=== PATIENT | female | born 1955 | race Two or more races ===

== ENCOUNTER 2024-08-22 12:53 | Emergency (ER) | payer OTHER ==
[~2024-08-22] VITALS: Ht 162.6 cm; Wt 59.9 kg
[~2024-08-22 12:53] MED LIST: FOSAMAX70 MG; INTESTINEX680 M1 PO; PEPCID AC20 MG PO; PRE PROTEIN1 EACH PO; PROMETRIUM200 MG; PROTONIX40 MG PO; VANCOMYCIN HCL125 MG PO
[2024-08-22 15:39] LABS: HEMOGLOBIN 14.4 g/dL (12.0-15.00); MEAN CELL VOLUME 92.8 fL (80.00-100.00); MEAN CORPUSCULAR HEMOGLOBIN 31.8 pg (27.00-32.0); MEAN CORPUSCULAR HGB CONC 34.3 g/dl (32.0-36.0); PLATELET COUNT 237 K/uL (150-450); RED BLOOD COUNT 4.52 M/uL (4.00-6.00); RED CELL DISTRIBUTION WIDTH 13.8 % (11.5-14.5)
[2024-08-22 15:55] LABS: ALBUMIN 3.4 gm/dL (3.4-5.0); BILIRUBIN TOTAL 0.4 mg/dL (0.3-1.2); BILIRUBIN,CONJUGATED 0.11 mg/dL (0.0-0.2); BILIRUBIN,UNCONJUGATED 0.29 mg/dL (0.0-0.6); CALCIUM 9.8 mg/dL (8.5-10.1); CREATININE SERUM 0.64 mg/dL (0.55-1.02); GFR 92.84; POTASSIUM 4.51 mEq/L (3.5-5.1); TOTAL PROTEIN 7.3 gm/dL (6.4-8.2)
[2024-08-22 16:49] LABS: URINE APPEARANCE Clear; URINE BILIRRUBIN Negative (NEGATIVE); URINE BLOOD Negative; URINE COLOR Yellow; URINE GLUCOSE Negative (NEGATIVE); URINE KETONE Negative (NEGATIVE); URINE LEUKOCYTE Negative; URINE NITRATE Negative; URINE PROTEIN Negative (NEGATIVE); URINE UROBILINOGEN 0.2 E.U./dl
[2024-08-22 16:52] LABS: URINE BACTERIA 256.9 uL (0.0-1933); URINE EPITHELIAL CELLS 19.6 uL (0.0-38.8); URINE RBC 6.7 uL (0.0-20.8); URINE WBC 4.7 uL (0.0-23.2)
[2024-08-22] MEDS ORDERED: PROBIOTIC1 EAC2 PO (18:24)
[2024-08-22] MEDS ORDERED: METRONIDAZOLE500 MG PO (18:24)
[2024-08-22] MEDS ORDERED: CIPRO500 MG PO (18:24)
[2024-08-22] MEDS ORDERED: PEPCID AC20 MG PO (18:24)
== END 2024-08-22 18:34 | disposition home or self-care (01) ==
LOC: ER 12:54
PROVIDERS: General Practice
DX: K52.89 Other specified noninfective gastroenteritis and colitis (principal); R10.32 Left lower quadrant pain; K57.30 Diverticulosis of large intestine without perforation or abscess without bleeding; J45.909 Unspecified asthma, uncomplicated; Z88.6 Allergy status to analgesic agent; Z88.0 Allergy status to penicillin; M19.90 Unspecified osteoarthritis, unspecified site
CPT/HCPCS: 36415; 74177; 99284; Q9965

== ENCOUNTER 2024-09-09 13:39 | Emergency (ER) | payer OTHER ==
[~2024-09-09] VITALS: Ht 162.6 cm; Wt 58.5 kg
[~2024-09-09 13:39] MED LIST changes: +CIPRO500 MG PO; +METRONIDAZOLE500 MG PO; +PROBIOTIC1 EAC2 PO
[2024-09-09] MEDS ORDERED: ALENDRONATE SOD70 MG PO (14:05)
[2024-09-09] MEDS ORDERED: PROMETRIUM200 MG PO (14:06)
[2024-09-09] MEDS ORDERED: RINGERS SOLUTION,LACTATED 1,000 ML IV STA (15:00)
[2024-09-09 15:43] LABS: HEMATOCRIT 41.7 % (36.0-45.00); HEMOGLOBIN 14.6 g/dL (12.0-15.00); MEAN CELL VOLUME 92.3 fL (80.00-100.00); MEAN CORPUSCULAR HEMOGLOBIN 32.4 pg (27.00-32.0); MEAN CORPUSCULAR HGB CONC 35.1 g/dl (32.0-36.0); PLATELET COUNT 236 K/uL (150-450); RED BLOOD COUNT 4.52 M/uL (4.00-6.00); RED CELL DISTRIBUTION WIDTH 13.4 % (11.5-14.5)
[2024-09-09 15:51] LABS: URINE APPEARANCE Clear; URINE BILIRRUBIN Negative (NEGATIVE); URINE BLOOD Negative; URINE COLOR Yellow; URINE GLUCOSE Negative (NEGATIVE); URINE KETONE Negative (NEGATIVE); URINE LEUKOCYTE Negative; URINE NITRATE Negative; URINE PROTEIN Negative (NEGATIVE); URINE UROBILINOGEN 0.2 E.U./dl
[2024-09-09 15:55] LABS: URINE BACTERIA 200.2 uL (0.0-1933); URINE CAST 0.15 uL (0.0-1.40); URINE EPITHELIAL CELLS 21.3 uL (0.0-38.8); URINE RBC 3.3 uL (0.0-20.8); URINE WBC 5.7 uL (0.0-23.2)
[2024-09-09 16:06] LABS: ALBUMIN 3.5 gm/dL (3.4-5.0); BILIRUBIN TOTAL 0.65 mg/dL (0.3-1.2); BILIRUBIN,CONJUGATED 0.19 mg/dL (0.0-0.2); BILIRUBIN,UNCONJUGATED 0.46 mg/dL (0.0-0.6); CALCIUM 9.7 mg/dL (8.5-10.1); CREATININE SERUM 0.68 mg/dL (0.55-1.02); GFR 86.3; POTASSIUM 4.2 mEq/L (3.5-5.1)
[2024-09-09] MEDS ORDERED: CHOLESTYRAMINE/ASPARTAME LIGHT 4 G/PKT PACKET PO ONE (17:00)
[2024-09-09 18:00] LABS: ob POSITIVE (NEGATIVE)
[2024-09-09] MEDS ORDERED: METRONIDAZOLE500 MG PO (19:54)
[2024-09-09] MEDS ORDERED: QUESTRAN POWDE378 GM PO (19:54)
== END 2024-09-09 20:13 | disposition home or self-care (01) ==
LOC: ER 13:41
PROVIDERS: General Practice
DX: K52.89 Other specified noninfective gastroenteritis and colitis (principal); R19.7 Diarrhea, unspecified; E86.0 Dehydration; Z20.822 Contact with and (suspected) exposure to COVID-19; Z88.6 Allergy status to analgesic agent; Z88.0 Allergy status to penicillin; E11.9 Type 2 diabetes mellitus without complications
CPT/HCPCS: 36415; 74177; 99284; Q9965

== ENCOUNTER 2024-09-27 12:02 | Inpatient (IN) | payer OTHER ==
[~2024-09-27] VITALS: Ht 162.6 cm; Wt 57.6 kg
[~2024-09-27 12:02] MED LIST changes: +ALENDRONATE SOD70 MG PO; +PROMETRIUM200 MG PO; +QUESTRAN POWDE378 GM PO
--- NOTE | 2024-09-27 12:45 | NUR ---
PTE ALERTA Y ORIENTADA X3, SE MANUELA S/V. PTE REFIERE QUE SAUCEDO TENIDO 15 DIARREA Y PRESENTA DOLOR ABDOMINAL. PTE REFIERE QUE BARR MEDICO [place] IND[place] QUE FUERA A ER. SE UBICA EN VA[place]NAVI AREA DE OBSERVACION.
[2024-09-27] MEDS ORDERED: 0.9 % SODIUM CHLORIDE 1,000 ML IV SCH ×2 (13:06→18:45)
--- NOTE | 2024-09-27 14:15 | NUR ---
SE REALIZA LABORATORIO NOBLE ORDEN MEDICA BAJO0 MEDIDAS ASEPTICAS. SE ORIENTA A PTE QUIEN REFIERE ENTENDER Y ACEPTAR.
[2024-09-27 14:35] LABS: HEMATOCRIT 42.7 % (36.0-45.00); HEMOGLOBIN 14.5 g/dL (12.0-15.00); MEAN CELL VOLUME 93.9 fL (80.00-100.00); MEAN CORPUSCULAR HEMOGLOBIN 31.9 pg (27.00-32.0); PLATELET COUNT 180 K/uL (150-450); RED BLOOD COUNT 4.55 M/uL (4.00-6.00); RED CELL DISTRIBUTION WIDTH 12.9 % (11.5-14.5)
[2024-09-27 14:56] LABS: CALCIUM 9.6 mg/dL (8.5-10.1); CREATININE SERUM 0.69 mg/dL (0.55-1.02); GFR 84.86; POTASSIUM 4.56 mEq/L (3.5-5.1)
[2024-09-27 15:28] LABS: URINE APPEARANCE Clear; URINE BILIRRUBIN Small (NEGATIVE); URINE BLOOD Negative; URINE COLOR Dark Yellow; URINE GLUCOSE Negative (NEGATIVE); URINE LEUKOCYTE Trace; URINE NITRATE Negative; URINE PROTEIN Trace (NEGATIVE); URINE UROBILINOGEN 0.2 E.U./dl
[2024-09-27 15:31] LABS: URINE BACTERIA 1305.2 uL (0.0-1933); URINE EPITHELIAL CELLS 39.4 uL (0.0-38.8); URINE RBC 25.6 uL (0.0-20.8); URINE WBC 16.8 uL (0.0-23.2)
[2024-09-27 15:44] LABS: URINE CAST 0.45 uL (0.0-1.40); URINE KETONE 40 (NEGATIVE)
[2024-09-27] MEDS ORDERED: CIPROFLOXACIN IN 5 % DEXTROSE 400 MG/200 ML PIGGYBAG IV ONE (16:45)
[2024-09-27] MEDS ORDERED: METRONIDAZOLE/SODIUM CHLORIDE 500 MG/100 ML PIGGYBACK IV ONE (16:45)
[2024-09-27] MEDS ORDERED: MEPERIDINE HCL/PF 25 MG/ML VIAL IV ONE (18:00)
--- NOTE | 2024-09-27 18:38 | NUR ---
SE ADMINISTRA MEDICAMENTO NOBLE ORDEN MEDICA.
[2024-09-27] MEDS ORDERED: ACETAMINOPHEN 500 MG GEL..CAP PO PRN (18:45)
[2024-09-27] MEDS ORDERED: ONDANSETRON HCL 4 MG in 0.9 % SODIUM CHLORIDE 50 ML IV PRN (18:45)
[2024-09-27] MEDS ORDERED: MORPHINE SULFATE 2 MG/ML CARTRIDGE IV PRN (19:00)
[2024-09-27] MEDS ORDERED: MORPHINE SULFATE 2 MG/ML CARTRIDGE IV ONE (19:00)
[2024-09-27 20:44] LABS: INR 1.15; PARTIAL THROMBOPLASTIN TIME 27.3 SECONDS (22.0-34.0); PROTHROMBIN TIME 12.4 SECONDS (9.0-11.5)
[2024-09-27 20:54] VITALS: BP 108/63; O2SAT 100
[2024-09-27] MEDS ORDERED: LACTOBACILLUS ACIDOPHILUS 1 CAP CAP PO SCH (21:56)
[2024-09-28] MEDS ORDERED: METRONIDAZOLE/SODIUM CHLORIDE 100 ML IV SCH (01:00)
[2024-09-28 01:57] VITALS: BP 116/68; O2SAT 96
[2024-09-28 08:47] LABS: ob POSITIVE (NEGATIVE)
[2024-09-28] MEDS ORDERED: levoFLOXacin IN DEXTROSE 5 % 150 ML IV SCH (09:00)
[2024-09-28] MEDS ORDERED: PANTOPRAZOLE SODIUM 40 MG/VIAL VIAL IV SCH (09:00)
[2024-09-28 09:45] VITALS: BP 113/71; O2SAT 96
[2024-09-28] MEDS ORDERED: FAMOTIDINE/PF 20 MG/2 ML VIAL IV SCH (12:35)
[2024-09-28] MEDS ORDERED: VANCOMYCIN HCL 125 MG/7.5 ML BLIST.PACK PO SCH (18:00)
[2024-09-28 18:55] VITALS: BP 124/73; O2SAT 97
[2024-09-28] MEDS ORDERED: LORATADINE 10 MG TABLET PO SCH (19:11)
[2024-09-29 02:46] VITALS: BP 124/73
[2024-09-29] MEDS ORDERED: DICYCLOMINE HCL 10 MG CAPSULE PO PRN (05:45)
[2024-09-29] MEDS ORDERED: NA PHOS,M-B/NA PHOS,DI-BA 1 BOTTLE ENEMA RECTAL SCH (06:00)
[2024-09-29 09:31] VITALS: BP 112/68; O2SAT 97
[2024-09-29 18:23] VITALS: BP 111/70; O2SAT 100
[2024-09-30 00:18] VITALS: BP 114/71
[2024-09-30 12:58] VITALS: BP 115/74
[2024-09-30 18:28] VITALS: BP 127/80; O2SAT 100
[2024-10-01 00:31] VITALS: BP 130/60; O2SAT 98
[2024-10-01] MEDS ORDERED: NA PHOS,M-B/NA PHOS,DI-BA 1 BOTTLE ENEMA RECTAL NR (06:00)
[2024-10-01 09:08] LABS: HEMATOCRIT 36.3 % (36.0-45.00); HEMOGLOBIN 12.3 g/dL (12.0-15.00); MEAN CELL VOLUME 92.7 fL (80.00-100.00); MEAN CORPUSCULAR HEMOGLOBIN 31.3 pg (27.00-32.0); MEAN CORPUSCULAR HGB CONC 33.8 g/dl (32.0-36.0); PLATELET COUNT 198 K/uL (150-450); RED BLOOD COUNT 3.92 M/uL (4.00-6.00); RED CELL DISTRIBUTION WIDTH 13.1 % (11.5-14.5)
[2024-10-01 10:03] LABS: ALBUMIN 2.6 gm/dL (3.4-5.0); BILIRUBIN TOTAL 0.35 mg/dL (0.3-1.2); CREATININE SERUM 0.52 mg/dL (0.55-1.02); GFR 117.62; GLOBULINA 2.5 G/DL (2.4-3.5); MAGNESIUM 1.9 mg/dL (1.8-2.4); PHOSPHOROUS 2.2 mg/dL (2.5-4.9); POTASSIUM 3.07 mEq/L (3.5-5.1); TOTAL PROTEIN 5.1 gm/dL (6.4-8.2)
[2024-10-01 10:39] VITALS: BP 111/64; O2SAT 99
[2024-10-01] MEDS ORDERED: MIDAZOLAM HCL 2 MG/2 ML VIAL IV ONE (12:30)
[2024-10-01] MEDS ORDERED: fentaNYL CITRATE 50 MCG/ML AMPUL IV ONE (12:30)
[2024-10-01] MEDS ORDERED: TUBERCULIN,PURIF.PROT.DERIV. 10 SKIN.TEST SKIN.TEST ID ONE (12:45)
[2024-10-01 18:00] VITALS: BP 97/52
[2024-10-01] MEDS ORDERED: POTASSIUM BICARBONATE/CIT AC 25 MEQ TABLET.EFF PO SCH (21:00)
[2024-10-02 03:10] VITALS: BP 106/63; O2SAT 99
[2024-10-02 08:32] VITALS: BP 124/68; O2SAT 98
[2024-10-02 11:34] LABS: CALCIUM 9.2 mg/dL (8.5-10.1); CREATININE SERUM 0.61 mg/dL (0.55-1.02); GFR 97.83; MAGNESIUM 1.7 mg/dL (1.8-2.4); POTASSIUM 3.69 mEq/L (3.5-5.1)
[2024-10-02 19:40] VITALS: BP 115/62
[2024-10-03 02:18] VITALS: BP 109/68; O2SAT 99
[2024-10-03] MEDS ORDERED: VANCOMYCIN HCL125 MG PO (08:53)
[2024-10-03] MEDS ORDERED: INTESTINEX680 M1 PO (08:54)
[2024-10-03 09:25] VITALS: BP 121/76; BP 135/76; O2SAT 96
== END 2024-10-03 11:36 | disposition home or self-care (01) | DRG 373 ==
LOC: ER 12:04 → MEDJ 19:18 → SEC-K 19:18 → MEDJ 21:14
PROVIDERS: Emergency Medicine; General Practice; Internal Medicine; ADMIT Internal Medicine; ATTEND Internal Medicine
PROC: 0DBM8ZX Excision of Descending Colon, Via Natural or Artificial Opening Endoscopic, Diagnostic (ICD-10-PCS; principal; 2024-10-01)
PROC: 0DBN8ZX Excision of Sigmoid Colon, Via Natural or Artificial Opening Endoscopic, Diagnostic (ICD-10-PCS; 2024-10-01)
PROC: 0DBP8ZX Excision of Rectum, Via Natural or Artificial Opening Endoscopic, Diagnostic (ICD-10-PCS; 2024-10-01)
DX: A04.72 Enterocolitis due to Clostridium difficile, not specified as recurrent (principal); E86.0 Dehydration